=== PATIENT | female | born 1945 | race Hispanic/Latino ===

== ENCOUNTER 2024-04-07 22:15 | Emergency (ER) | payer MEDICARE ==
[~2024-04-07] VITALS: Ht 152.4 cm; Wt 83.0 kg
[2024-04-08] MEDS ORDERED: BACITRACIN15 GM TOP (01:03)
[2024-04-08] MEDS: BACITRACIN ZINC 0.9GM TP ONE (01:18)
[2024-04-08 01:21] VITALS: PULSE 59; RESP 15; TEMP 97.3
[2024-04-08 01:23] VITALS: BP 180/89; PULSE 59; RESP 15; TEMP 97.3; O2SAT 99
== END 2024-04-08 01:50 | disposition home or self-care (01) ==
LOC: FSED 23:26
DX: R04.0 Epistaxis (principal); E11.65 Type 2 diabetes mellitus with hyperglycemia; I10 Essential (primary) hypertension; R94.4 Abnormal results of kidney function studies; R51.9 Headache, unspecified
CPT/HCPCS: 70450; 80053; 81003; 85025; 99284